=== PATIENT | male | born 1975 | race Caucasian/White ===

== ENCOUNTER 2021-10-02 11:19 | Outpatient (REF) | payer OTHER, SELFPAY ==
--- NOTE | ~2021-10-02 | XR_ITS ---
EXAMINATION: XR KNEE, LEFT CLINICAL INFORMATION: Sprain COMPARISON: None TECHNIQUE: Four views of the left knee. FINDINGS: No fracture or dislocation of the left knee. Joint spaces are well-maintained. A small suprapatellar joint effusion is noted. Partially visualized hardware within the proximal tibia is grossly unremarkable. XR/XR knee LT 4V IMPRESSION: Small suprapatellar joint effusion. No fracture.
== END 2021-10-02 11:20 | disposition home or self-care (01) ==
LOC: HO.HMGCX 11:19
PROVIDERS: Visit Provider Internal Medicine
DX: S83.92XA Sprain of unspecified site of left knee, initial encounter (principal)
CPT/HCPCS: 73564